=== PATIENT | male | born 1975 | race Caucasian/White ===

== ENCOUNTER 2021-08-23 16:23 | Emergency (ER) | payer MEDICARE, OTHER ==
--- NOTE | 2021-08-23 16:25 | NUR ---
Patient triaged and placed in room 2 via ambulance.
--- NOTE | 2021-08-23 16:28 | NUR ---
Pt BIBA re seizure activity, reported to be "9-10 minutes tonic clonic." Patient altered and noted to be post ictal when assessed. Unable to give accurate information re history or answer simple questions. Per report received, PMH of seizures, lupus, hypothyroidism and high cholesterol. NKDA. Patient is unable to remember if he has been compliant with medication regimen, including Lamictal for seizures. Placed on cardiac cath lab manager; systolic BP elevated. Will continue to monitor.
[2021-08-23 16:33] VITALS: BP_SYST 168
--- NOTE | 2021-08-23 16:42 | NUR ---
Dr Gibson at bedside to evaluate patient
[2021-08-23 18:26] LABS: BARBITURATE, URINE NEGATIVE (NEG <=200); BENZODIAZEPINE, URINE NEGATIVE (NEG <=150); CANNABINOID, URINE NEGATIVE (NEG <=50); COCAINE, URINE NEGATIVE (NEG <=150); METHAMPHETAMINES SCREEN,URINE NEGATIVE (NEG <=500); OPIATE, URINE NEGATIVE (NEG <=100); PHENCYCLIDINE SCREEN,URINE NEGATIVE (NEG <=25); UR TRICYCLIC ANTIDEPRESSANTS NEGATIVE (NEG <=300); URINE AMPHETAMINE NEGATIVE (NEG <=500); URINE METHADONE NEGATIVE (NEG <=200); URINE OXYCODONE SCREEN NEGATIVE (NEG <=100); URINE PROPOXYPHENE SCREEN NEGATIVE (NEG <=300)
[2021-08-23 18:39] LABS: BASOPHILS % (AUTO) 0.5 % (0.0-2.0); EOSINOPHILS % (AUTO) 0.7 % (0.0-4.0); HEMATOCRIT 45.4 % (36-54); HEMOGLOBIN 15.9 g/dL (14.0-18.0); LYMPHOCYTES # (AUTO) 0.3 K/uL (1.0-5.5); LYMPHOCYTES % (AUTO) 7.1 % (20.5-51.5); MEAN CORPUSCULAR HEMOGLOBIN 31 pg (27-31); MEAN CORPUSCULAR HGB CONC 35 % (32-36); MEAN CORPUSCULAR VOLUME 90 fL (79.0-98.0); MONOCYTES # (AUTO) 0.4 K/uL (0.0-1.0); NEUTROPHILS # (AUTO) 3.9 K/uL (1.8-7.7); NEUTROPHILS % (AUTO) 83.7 % (40.0-70.0); PLATELET COUNT (AUTO) 209 K/uL (130-430); RED BLOOD CELL COUNT(AUTO) 5.05 MIL/uL (4.2-6.2); RED CELL DISTRIBUTION WIDTH 12.9 % (9.0-15.0); WHITE BLOOD COUNT (AUTO) 4.7 K/uL (4.8-10.8)
[2021-08-23 19:13] LABS: CALCIUM 9.4 mg/dL (8.4-11.0); CREATININE 0.87 mg/dL (0.55-1.30); POTASSIUM 5.3 mmol/L (3.5-5.1)
--- NOTE | 2021-08-23 19:18 | NUR ---
Patient resting in bed; in no acute distress. Awaiting labaratory results. Famly at bedside. Will continue to monitor. Report given to Cole RICO to assume care.
[2021-08-23 19:19] LABS: ALBUMIN 3.8 g/dL (3.4-4.8); TOTAL BILIRUBIN 0.5 mg/dL (0.0-1.0)
--- NOTE | 2021-08-23 19:25 | NUR ---
assume care of pt from PATTIE RICO
[2021-08-23] MEDS ORDERED: NACL 0.9% 1,000 ML IV ONE (19:45)
[2021-08-23] MEDS ORDERED: BACITRACIN 1 GM OINT TP ONE (21:00)
--- NOTE | 2021-08-23 21:00 | NUR ---
PT GIVEN BACITRACIN FOR A WOUND ON HIS RIGHT POSTERIOR FOREARM
[2021-08-23 21:18] VITALS: BP_SYST 143
== END 2021-08-23 21:20 | disposition home or self-care (01) ==
LOC: SED 16:23
DX: R56.9 Unspecified convulsions (principal); E87.1 Hypo-osmolality and hyponatremia; I15.9 Secondary hypertension, unspecified; E78.00 Pure hypercholesterolemia, unspecified
CPT/HCPCS: 36415; 80053; 80307; 85025; 96360; 99283; J7030